=== PATIENT | female | born 1995 | race Caucasian/White ===

== ENCOUNTER → 2020-04-16 | Outpatient (CLI) | payer MEDICAID | LOC: RAD 11:16 | DX: M79.642 Pain in left hand (principal); M79.89 Other specified soft tissue disorders ==

== ENCOUNTER → 2020-04-26 | Outpatient (CLI) | payer MEDICAID ==
[~2020-04-26] MED LIST: DECADRON 4MG TAB4 MG PO; PANTOPRAZOLE SO40 MG PO
[2020-04-26 10:05] LABS: POTASSIUM 4.4 mmol/L (3.5-5.1)
[2020-04-26 10:06] LABS: ALBUMIN 4.2 g/dL (3.5-5.0)
[2020-04-26 10:07] LABS: CALCIUM 9.1 mg/dL (8.3-10.5)
[2020-04-26 10:08] LABS: TOTAL PROTEIN 7.1 g/dL (6.4-8.3)
[2020-04-26 10:10] LABS: TOTAL BILIRUBIN 0.5 mg/dL (0.2-1.2)
[2020-04-27 17:01] LABS: EOS # 0.1 (0.04-0.40); EOS % 2.1 % (1.0-5.0); HEMATOCRIT 39.9 % (37.0-47.0); HEMOGLOBIN 11.6 g/dL (12.5-16.0); LYMPH# 1.2 (1.50-4.00); MEAN CELL VOLUME 96 fl (78-100); MEAN CORPUSCULAR HEMOGLOBIN 28 pg (27-31); MEAN PLATELET VOLUME 11.6 fl (7.4-10.4); MONO # 0.3 (0.20-0.80); NEU # 2.7 (1.40-6.50); PLATELET COUNT 237 K/mm3 (130-400); RED BLOOD COUNT 4.14 M/mm3 (4.10-5.30); RED CELL DISTRIBUTION WIDTH 13.9 % (11.5-14.5); WHITE BLOOD COUNT 4.4 K/mm3 (4.8-10.8)
[2020-04-27 17:18] LABS: MEAN CORPUSCULAR HGB CONC 29 g/dL (33-37)
== END ==
LOC: LAB 09:39
PROVIDERS: Physician Assistant
DX: Z00.00 Encounter for general adult medical examination without abnormal findings (principal); Z13.29 Encounter for screening for other suspected endocrine disorder; D64.9 Anemia, unspecified; R53.83 Other fatigue

== ENCOUNTER 2020-05-27 15:48 | Emergency (ER) | payer MEDICAID ==
[2020-05-27] MEDS ORDERED: PANTOPRAZOLE SO40 MG PO (16:14)
[2020-05-27 17:06] LABS: EOS # 0.1 (0.04-0.40); EOS % 1.1 % (1.0-5.0); HEMATOCRIT 35.3 % (37.0-47.0); HEMOGLOBIN 11.3 g/dL (12.5-16.0); LYMPH# 1.2 (1.50-4.00); MEAN CELL VOLUME 89 fl (78-100); MEAN CORPUSCULAR HEMOGLOBIN 28 pg (27-31); MEAN CORPUSCULAR HGB CONC 32 g/dL (33-37); MEAN PLATELET VOLUME 10.3 fl (7.4-10.4); MONO # 0.7 (0.20-0.80); NEU # 6.3 (1.40-6.50); PLATELET COUNT 256 K/mm3 (130-400); RED BLOOD COUNT 3.99 M/mm3 (4.10-5.30); RED CELL DISTRIBUTION WIDTH 12.3 % (11.5-14.5); WHITE BLOOD COUNT 8.4 K/mm3 (4.8-10.8)
[2020-05-27] MEDS ORDERED: DECADRON 4MG TAB4 MG PO (17:27)
[2020-05-27 17:37] VITALS: BP 108/72
== END 2020-05-27 17:37 | disposition home or self-care (01) ==
LOC: ED 15:48
PROVIDERS: Family Medicine
DX: B27.90 Infectious mononucleosis, unspecified without complication (principal); Z79.899 Other long term (current) drug therapy